=== PATIENT | male | born 1955 | race Caucasian/White ===

== ENCOUNTER 2023-10-20 11:42 | Inpatient (IN) | payer MEDICARE, BC ==
[~2023-10-20] VITALS: Ht 175.3 cm; Wt 98.6 kg
[2023-10-20] MEDS ORDERED: ISOVUE-370 76% 100ML VIAL As Ordered ONE (12:15)
[2023-10-20 12:31] LABS: BASO # 0.1 10^3/uL (0.0-0.2); BASO % 0.9 % (0.0-1.0); EOS # 0.2 10^3/uL (0.0-0.5); EOS % 1.9 % (0.0-3.0); HEMATOCRIT 43.7 % (42.0-52.0); HEMOGLOBIN 15.7 g/dl (13.5-17.5); LYMPH # 1.8 10^3/uL (1.5-5.0); LYMPH % 21.5 % (24.0-44.0); MEAN CORPUSCULAR HEMOGLOBIN 30.5 pg (27.0-33.0); MEAN CORPUSCULAR HGB CONC 35.9 g/dl (32.0-36.5); MONO % 11.2 % (2.0-8.0); NEUTROPHILS # 5.5 10^3/uL (1.5-8.5); NEUTROPHILS % 64.4 % (36.0-66.0); PLATELET COUNT, AUTOMATED 216 10^3/uL (150-450); RED BLOOD COUNT 5.14 10^6/uL (4.30-6.10); WHITE BLOOD COUNT 8.6 10^3/uL (4.0-10.0)
[2023-10-20 12:45] LABS: INR 0.94; PARTIAL THROMBOPLASTIN TIME 28.8 SECONDS (24.8-34.2); PROTHROMBIN TIME 12.3 SECONDS (12.5-14.5)
[2023-10-20] MEDS ORDERED: ATOR1TAB19 PO (12:53)
[2023-10-20] MEDS ORDERED: LEVO-95 PO (12:53)
[2023-10-20] MEDS ORDERED: ECOT81TA5 PO (12:53)
[2023-10-20] MEDS ORDERED: BENA20TA PO (12:53)
[2023-10-20] MEDS ORDERED: HYDR-3490 PO (12:53)
[2023-10-20] MEDS ORDERED: ATOR80TA59 PO (12:53)
[2023-10-20 13:04] LABS: CK-MB VALUE MASS 3.2 NG/ML (<3.6)
[2023-10-20 13:05] LABS: CPK CREATINE PHOSPHOKINASE 172 U/L (46-171); MB/CK RELATIVE INDEX 1.86 (< OR =4)
[2023-10-20 13:06] LABS: BLOOD UREA NITROGEN 13 MG/DL (9-23); CALCIUM LEVEL 9.2 MG/DL (8.3-10.6); CARBON DIOXIDE LEVEL 27 MMOL/L (20-31); CHLORIDE LEVEL 103 MMOL/L (98-107); CREATININE FOR GFR 0.89 MG/DL (0.70-1.30); GLOMERULAR FILTRATION RATE > 60.0 (>49); GLUCOSE, FASTING 113 MG/DL (74-106); SODIUM LEVEL 132 MMOL/L (136-145)
[2023-10-20] MEDS: CLOPIDOGREL 75 MG TAB PO ONE (14:17)
[2023-10-20] MEDS ORDERED: CENT1TAB2 PO (16:54)
[2023-10-20] MEDS ORDERED: ATOR1TAB21 PO (16:54)
[2023-10-20] MEDS ORDERED: HOME MED LIST COMPLETE! XX SCH (16:55)
[2023-10-20] MEDS: LORazepam 2 MG/ML 1ML VIAL IV STA (17:05)
[2023-10-20] MEDS ORDERED: ACETAMINOPHEN TAB 650MG DOSE (2X325MG) PO PRN (17:05)
[2023-10-20] MEDS: NS 1,000 ML IV SCH (18:59)
[2023-10-20 19:03] VITALS: BP 118/61; TEMP 97.7; O2SAT 94
[2023-10-20] MEDS: NS 500 ML IV ONE (19:20)
[2023-10-20 19:33] VITALS: BP 116/62; TEMP 97.9; O2SAT 94
[2023-10-20] MEDS: ATORVASTATIN 20 MG TAB PO SCH (21:00)
[2023-10-20 21:24] LABS: THYROID STIMULATING HORMONE 0.262 uIU/ML (0.55-4.78)
[2023-10-21] MEDS: ATORVASTATIN 20 MG TAB PO ONE (00:09)
[2023-10-21 04:00] VITALS: BP 101/45; TEMP 97.9; O2SAT 95
[2023-10-21 05:54] LABS: HEMATOCRIT 40.2 % (42.0-52.0); HEMOGLOBIN 14.3 g/dl (13.5-17.5); MEAN CORPUSCULAR HEMOGLOBIN 30.5 pg (27.0-33.0); MEAN CORPUSCULAR HGB CONC 35.6 g/dl (32.0-36.5); MEAN CORPUSCULAR VOLUME 85.7 fl (80.0-96.0); PLATELET COUNT, AUTOMATED 197 10^3/uL (150-450); RED BLOOD COUNT 4.69 10^6/uL (4.30-6.10); WHITE BLOOD COUNT 7.7 10^3/uL (4.0-10.0)
[2023-10-21] MEDS: LEVOTHYROXINE 150MCG TABLET (0.15MG) PO SCH (06:14)
[2023-10-21 06:31] LABS: ALBUMIN 3.5 G/DL (3.2-5.2); ALKALINE PHOSPHATASE 68 U/L (46-116); ALT/SGPT 23 U/L (7.0-40); AST/SGOT 20 U/L (<34); BILIRUBIN,TOTAL 1.1 MG/DL (0.3-1.2); BLOOD UREA NITROGEN 13 MG/DL (9-23); CALCIUM LEVEL 8.7 MG/DL (8.3-10.6); CARBON DIOXIDE LEVEL 26 MMOL/L (20-31); CHLORIDE LEVEL 103 MMOL/L (98-107); CREATININE FOR GFR 0.96 MG/DL (0.70-1.30); GLOMERULAR FILTRATION RATE > 60.0 (>49); GLUCOSE, FASTING 102 MG/DL (74-106); POTASSIUM SERUM 3.9 MMOL/L (3.5-5.1); SODIUM LEVEL 135 MMOL/L (136-145)
[2023-10-21] MEDS: NS 500 ML IV ONE (08:57)
[2023-10-21] MEDS: ASPIRIN 81MG ENTERIC TABLET PO SCH (09:08)
[2023-10-21] MEDS: MULTIVITAMINS/MINERALS THERAP 1 TAB PO SCH (09:08)
[2023-10-21 09:32] VITALS: BP 127/60
[2023-10-21] MEDS: CLOPIDOGREL 75 MG TAB PO SCH (10:25)
[2023-10-21 12:00] VITALS: BP 142/75; TEMP 97.3; O2SAT 97
[2023-10-21] MEDS ORDERED: CLOP75TA2 PO (12:06)
[2023-10-21] MEDS ORDERED: ATOR1TAB21 PO (12:06)
== END 2023-10-21 13:38 | disposition home or self-care (01) | DRG 66 ==
LOC: M ED 11:42 → M ED INP 17:04 → M MSPAV 18:23
PROVIDERS: ADMIT Hospitalist; ATTEND Hospitalist
PROC: B246ZZZ Ultrasonography of Right and Left Heart (ICD-10-PCS; principal; 2023-10-21)
DX: I63.9 Cerebral infarction, unspecified (principal); E66.9 Obesity, unspecified; E78.5 Hyperlipidemia, unspecified; I10 Essential (primary) hypertension; E03.9 Hypothyroidism, unspecified; I25.10 Atherosclerotic heart disease of native coronary artery without angina pectoris; F17.290 Nicotine dependence, other tobacco product, uncomplicated; Z79.82 Long term (current) use of aspirin; Z79.890 Hormone replacement therapy; Z79.899 Other long term (current) drug therapy